=== PATIENT | female | born 1930 | race Caucasian/White ===

== ENCOUNTER → 2017-05-21 | Outpatient (CLI) | payer OTHER, BC ==
[~2017-05-21] MED LIST: ACETAMINOPHEN; ADULT LOW DOSE81 MG PO; ALLEGRA ALLERG180 MG PO; ALLERGY RELIEF1 EACH PO; ALPRAZOLAM 0.0.25 M1 PO; ALREX10 ML; ALREX10 ML OP; BENADRYL25 MG PO; BENICAR20 MG PO; BENTYL 10 MG CA10 MG PO; BENZONATATE200 MG PO; CALCIUM 600 +1 EAC8 PO; CEFDINIR PO; CIPRO HC OTIC S10 ML OTIC; CIPROFLOXIN HC2.5 ML OPHTHALMIC; COZAAR 50 MG TA50 MG PO; DEMADEX10 MG PO; DESYREL50 MG PO; DOXYCYCLINE 10100 M1 PO; ELESTAT5 ML OP; ENDOCET 5-3251 EACH PO; HEARTBURN TREAT15 MG PO; KLOR-CON 1010 MEQ PO; MAGNES PO; MAGNESIUM OXID200 MG PO; MICRO-K 10 MEQ10 MEQ OR; MIRALAX255 GM PO; MULTIVITAMINS; NATEGLINIDE; NATEGLINIDE60 MG PO; NEILMED SINUS R1 KIT NASAL; NEXIUM40 MG PO; NITROSTAT0.4 MG SL; NORCO 5-325 TA1 EACH PO; NORVASC 2.5 MG2.5 M1 PO; ONDANSETRON HCL4 M2 PO; ONE-A-DAY WOME1 EACH PO; OXAZEPAM 10MG C10 M1 PO; PREVACID DIS; PREVACID15 MG PO; PROPOXYPHENE HC65 M1 OR; PROVENTIL; RECLAST 55 MG/1002 IVPB; REFRESH5 ML OP; ROBITUSSIN DM118 ML PO; SIMVASTATIN40 MG PO; SINGULAIR 10 MG10 M1 PO; SKELAXIN 800 M800 M1 PO; STARLIX PO; STOOL SOFTENER1 EAC2 PO; STOOL SOFTENER240 MG PO; TEARS PURE DROP15 ML OP; TORSEMIDE10 MG PO; TRAMADOL 50 MG50 MG PO; TRAZODONE 50 MG50 MG OR; VICODIN; VITAMIN D1000 UNI1 PO; VITAMIN D250000 UNIT PO; XOPENEX HFA15 GM IH; XOPENEX0.31 MG/3 IH; XOPENEX0.63 MG/3 INH; ZETIA10 MG PO; ZOCOR 10 MG TAB10 MG PO; ZOFRAN4 MG PO; ZPAK PO; ZYRTEC10 M2 PO; ZYRTEC10 MG PO; [UNRECOGNIZED DRUG - OTHER]; nateglinide PO
== END ==
LOC: RAD 13:15
DX: Z12.31 Encounter for screening mammogram for malignant neoplasm of breast (principal)